=== PATIENT | male | born 1975 | race Two or more races ===

== ENCOUNTER 2017-11-24 15:26 | Emergency (ER) | payer MEDICAID ==
[~2017-11-24] VITALS: Ht 180.3 cm; Wt 97.1 kg
[2017-11-24 15:52] VITALS: BP 98/58
== END 2017-11-24 19:15 | disposition left against medical advice (07) ==
LOC: ER 15:26
DX: M79.602 Pain in left arm (principal); Z53.21 Procedure and treatment not carried out due to patient leaving prior to being seen by health care provider